=== PATIENT | female | born 1950 | race Caucasian/White ===

== ENCOUNTER → 2020-01-30 | Outpatient (CLI) | payer MEDICARE, OTHER | END | disposition home or self-care (01) | LOC: LABWHC1 09:25 | PROVIDERS: ATTEND Pediatrics | DX: R05 Cough (principal) | CPT/HCPCS: U0003; C9803 ==

== ENCOUNTER 2020-03-30 09:06 | Emergency (ER) | payer MEDICARE, OTHER ==
[2020-03-30 09:16] VITALS: RESP 18
--- NOTE | 2020-03-30 09:33 | ED ---
General Adult HPI - General Chief complaint: Fever Stated complaint: Fever,Diarrhea,Sinus Time Seen by Provider: 03/30/20 09:18 Source: patient, RN notes reviewed Mode of arrival: ambulatory Limitations: no limitations - History of Present Illness Initial comments: 69-year-old female presents to the emergency room for a chief complaint of fevers times one week. Patient states her temperature has been 2 higher than normal. States she is normally 96.6 and the highest her temperature has been is 98.6. Patient states she maybe has a little bit of sinus congestion and some weakness but denies any symptoms otherwise. States she is only being checked out because her needs to be checked out or she would just wait until Wednesday. Patient denies cough or shortness of breath. Denies any abdominal pain. Patient has no other complaints at this time including shortness of breath, chest pain, abdominal pain, nausea or vomiting, headache, or visual changes. - Related Data Home Medications Medication Instructions Recorded Confirmed Evening [place] Oil 500 mg PO BID 03/30/20 03/30/20 Magnesium 200 mg PO DAILY 03/30/20 03/30/20 Multivitamins, Thera [Multivitamin 1 tab PO BID 03/30/20 03/30/20 (formulary)] Thyroid,Pork [[place] Thyroid] 15 mg PO Q48H 03/30/20 03/30/20 Zinc 50 mg PO DAILY 03/30/20 03/30/20 Previous Rx's Medication Instructions Recorded Azithromycin [Zithromax Z-pack (6 250 mg PO DIRECTED #6 tab 03/30/20 tabs)] Allergies Allergy/AdvReac Type Severity Reaction Status Date / Time No Known Allergies Allergy Verified 03/30/20 10:25 Review of Systems ROS Statement: Those systems with pertinent positive or pertinent negative responses have been documented in the HPI. ROS Other: All systems not noted in ROS Statement are negative. Past Medical History Past Medical History: Thyroid Disorder History of Any Multi-Drug Resistant Organisms: None Reported Past Surgical History: Hysterectomy Past Psychological History: No Psychological Hx Reported Smoking Status: Never smoker Past Alcohol Use History: None Reported Past Drug Use History: None Reported General Exam Limitations: no limitations General appearance: alert, in no apparent distress Head exam: Present: atraumatic, normocephalic, normal inspection Eye exam: Present: normal appearance, PERRL, EOMI. Absent: scleral icterus, conjunctival injection, periorbital swelling ENT exam: Present: normal exam Neck exam: Present: normal inspection, full ROM. Absent: tenderness, meningismus, lymphadenopathy Respiratory exam: Present: normal lung sounds bilaterally. Absent: respiratory distress, wheezes, rales, rhonchi, stridor Cardiovascular Exam: Present: regular rate, normal rhythm, normal heart sounds. Absent: systolic murmur, diastolic murmur, rubs, gallop, clicks GI/Abdominal exam: Present: soft, normal bowel sounds. Absent: distended, tenderness, guarding, rebound, rigid Neurological exam: Present: alert Course Vital Signs 03/30/20 09:11 Temperature 99.0 F Pulse Rate 72 Respiratory 18 Rate Blood Pressure 136/61 O2 Sat by Pulse 97 Oximetry Medical Decision Making - Medical Decision Making Vitals are stable. Patient reports her highest temperature at home was 98.6. Patient refusing blood work. States she doesn't want a chest x-ray either she just wants antibiotics. I did convince patient ultimately to do a chest x-ray which did not show any new acute process. However, on a virus is detected. This is likely because the patient's fever. Urinalysis did also show 25 white blood cells. I did recommend starting patient on Keflex however patient states she has been researching and knows she needs a Z-Aiden for Covid. I did agree to give this to patient as long as she follows up on culture results in case we need to switch her antibiotic to one that covers the urinary tract. Patient is agreeable to this. She is already taking recommended vitamins and will continue to do so. She will return here for any worsening symptoms. I discussed this case with attending Dr. Polo who agrees with this assessment and treatment plan. - Lab Data Lab Results 03/30/20 03/30/20 Range/Units 09:30 09:59 Urine Color Yellow Urine Appearance Cloudy H (Clear) Urine pH 7.0 (5.0-8.0) Ur Specific Lane 1.021 (1.001-1.035) Urine Protein Trace H (Negative) Urine Glucose (UA) Negative (Negative) Urine Ketones 1+ H (Negative) Urine Blood Negative (Negative) Urine Nitrite Negative (Negative) Urine Bilirubin Negative (Negative) Urine Urobilinogen <2.0 (<2.0) mg/dL Ur Leukocyte Esterase Large H (Negative) Urine RBC 1 (0-5) /hpf Urine WBC 25 H (0-5) /hpf Ur Squamous Epith Cells 5 H (0-4) /hpf Urine Mucus Rare H (None) /hpf Coronavirus (PCR) Detected A (Not Detectd) Influenza Type A RNA Not Detected (Not Detectd) Influenza Type B (PCR) Not Detected (Not Detectd) Disposition Clinical Impression: COVID-19 Disposition: HOME SELF-CARE Condition: Good Instructions (If sedation given, give patient instructions): Fever in Adults (ED) Additional Instructions: Please take antibiotic as directed. Follow up on urine culture results. Continue to take your vitamins. Return to the emergency room for any worsening symptoms. Prescriptions: Azithromycin [Zithromax Z-pack (6 tabs)] 250 mg PO DIRECTED #6 tab Is patient prescribed a controlled substance at d/c from ED?: No Referrals: Tomas Vaughn DO [Primary Care Provider] - 1-2 days Time of Disposition: 10:31
[2020-03-30 10:01] LABS: Appearance,Urine Cloudy (Clear); Bilirubin,Urine Negative (Negative); Blood,Urine Negative (Negative); Color,Urine Yellow; Glucose,Urine (UA) Negative (Negative); Ketones,Urine 1+ (Negative); Leukocyte Esterase,Urine Large (Negative); Mucus,Urine Rare /hpf; Nitrite,Urine Negative (Negative); Protein,Urine Trace (Negative); RBC,Urine 1 /hpf (0-5); Specific Gravity,Urine 1.021 (1.001-1.035); Squamous Epithelial Cell,Urine 5 /hpf (0-4); Urobilinogen,Urine <2.0 mg/dL (<2.0); WBC,Urine 25 /hpf (0-5)
--- NOTE | 2020-03-30 10:11 | XR ---
EXAMINATION TYPE: XR chest 1V portable DATE OF EXAM: 03/30/2020 Comparison: None Clinical History: 69-year-old female cough Findings: Heart normal size. Hyperinflation. Hazy lower lung densities relating to overlying soft tissue. Mild interstitial prominence is a chronic appearance. Minimal biapical pleural-parenchymal scarring. No co nsolidation or pleural effusion seen. Impression: COPD. No definite acute cardiopulmonary process.
[2020-03-30 10:18] LABS: SARS-CoV-2 RNA Rapid Abbott Detected (Not Detectd)
[2020-03-30 11:06] VITALS: BP 126/84; PULSE 88; TEMP 98
== END 2020-03-30 11:05 | disposition home or self-care (01) ==
LOC: EC 09:06
DX: U07.1 COVID-19 (principal); E07.9 Disorder of thyroid, unspecified; Z79.890 Hormone replacement therapy
CPT/HCPCS: 71045; 81001; 87086; 87502; 87635; 99283